=== PATIENT | male | born 1985 | race Asian ===

== ENCOUNTER 2016-06-19 19:50 | Emergency (ER) | payer OTHER ==
[2016-06-19 20:05] VITALS: BP 141/78; PULSE 83; TEMP 98; BMI 21.9
--- NOTE | 2016-06-19 22:01 | PDOC ---
History of Present Illness - General Chief Complaint: Injury Stated Complaint: INJURY Time Seen by Provider: 06/19/16 21:14 History Source: Patient Exam Limitations: No Limitations - History of Present Illness Initial Comments: CHIEF COMPLAINT: 30 y/o afebrile male with no significant PMH c/o right hand pain s/p slip an fall in shower this evening. HISTORY OF PRESENT ILLNESS: The patient states he slipped in the shower and landed on his right hand. He now has pain in his right hand. He denies dizziness, head trauma, neck pain, LOC, n/v/d, f/c, changes in vision/hearing, CP, SOB, palpitations, numbness/tingling in affected hand/fingers, decreased ROM of affected joint. Pt put ice on the hand. Vital signs on arrival are within normal limits. REVIEW OF SYSTEMS: GENERAL/CONSTITUTIONAL: No fever/chills. No weakness. No weight change. MUSCULOSKELETAL: +right hand pain. No neck or back pain. SKIN: No rash or easy bruising. NEUROLOGIC: No headache, vertigo, loss of consciousness, or loss of sensation. PHYSICAL EXAM: VITAL_SIGNS: within normal limits GENERAL_APPEARANCE: alert, cooperative, mild obvious discomfort. MENTAL_STATUS: speech clear, oriented X 3, responds appropriately to questions. NEURO: motor intact and sensory intact in injured extremity. EXTREMITIES: good pulse in injured extremity. 5th MCP of right hand with obvious deformity, swelling and TTP. Full flexion and extension of wrist. pain with eversion an inversion of right hand. Full ROM of fingers of right hand. SKIN: warm, dry, good color. Past History - Past Medical History Allergies/Adverse Reactions: Allergies Allergy/AdvReac Type Severity Reaction Status Date / Time No Known Allergies Allergy Verified 06/19/16 20:02 Other medical history: denies - Immunization History Immunization Up to Date: Yes - Psycho/Social/Smoking Cessation Hx Suicidal Ideation: No Smoking History: Never smoked Hx Alcohol Use: Yes Drug/Substance Use Hx: No Substance Use Type: Alcohol *Physical Exam - Vital Signs Last Vital Signs Temp Pulse Resp BP Pulse Ox 98.0 F 83 20 141/78 100 06/19/16 20:02 06/19/16 20:02 06/19/16 20:02 06/19/16 20:02 06/19/16 20:02 Procedures - Splinting Splint Location: Right: Hand Pre-Proc Neuro Vasc Exam: normal Hand-Made Type: orthoglass Splint Type: Yes: Short Arm (Boxer) Post-Proc Neuro Vasc Exam: normal Sanket Bandage: 3" (2) Sling: No Complications: No Post splint xray: No ED Treatment Course - RADIOLOGY Radiology Studies Ordered: Category Date Time Status HAND- RIGHT [RAD] Stat Radiology 06/19/16 21:45 Stop Req WRIST W/HAND-RIGHT* [RAD] Stat Radiology 06/19/16 21:46 Ordered Medical Decision Making - Medical Decision Making A/P: 30 y/o male with possible right hand fracture. Plan is as follows: 1. xray right hand Xray right hand IMPRESSION: Boxer's fracture to right distal 5th MCP bone. Put the patient's hand in a Boxer's splint. Gave him referral to Dr. Neal and suggested he call in the morning for the first available follow up appointment. Suggested he take Motrin for pain and return to the ER with any worsening or concerning symptoms. The patient verbalizes understanding of all instructions, has no further questions and is awaiting discharge. *DC/Admit/Observation/Transfer Diagnosis at time of Disposition: Boxer's fracture Qualifiers: Encounter type: initial encounter Fracture type: closed Qualified Code(s): S62.309A - Unspecified fracture of unspecified metacarpal bone, initial encounter for closed fracture - Discharge Dispostion Condition at time of disposition: Improved - Referrals Referrals: Desmond Curtis MD [Primary Care Provider] - Semaj Neal MD [Staff Physician] - Call tomorrow - Patient Instructions Printed Discharge Instructions: DI for Boxer's Fracture Additional Instructions: Discharge Instructions: -Take Motrin for pain every 6 hours if needed -Call Dr. Neal first thing in the morning to schedule follow up appointment as soon as possible -Return to the ER with any worsening or concerning symptoms
== END 2016-06-19 23:06 | disposition home or self-care (01) ==
LOC: JERFT 19:50
PROC: 2W38X1Z Immobilization of Right Upper Extremity using Splint (ICD-10-PCS; principal; 2016-06-19)
DX: S62.356A Nondisplaced fracture of shaft of fifth metacarpal bone, right hand, initial encounter for closed fracture (principal); W18.2XXA Fall in (into) shower or empty bathtub, initial encounter; Y93.E1 Activity, personal bathing and showering; Y92.012 Bathroom of single-family (private) house as the place of occurrence of the external cause
CPT/HCPCS: 73110-TC-RT; 73130-TC-RT; 99281-25